=== PATIENT | female | born 1990 | race Hispanic/Latino ===

== ENCOUNTER 2019-05-22 18:31 | Emergency (ER) | payer MEDICAID ==
[2019-05-22 19:12] LABS: BASOPHILS % (AUTO) 0.8 % (0.0-5.0); EOSINOPHILS % (AUTO) 1.3 % (0.0-8.0); HEMATOCRIT 41.4 % (36-48); LYMPHOCYTES % (AUTO) 20.4 % (21.0-51.0); MEAN CORPUSCULAR HEMOGLOBIN 28.8 pg (27.0-33.0); MEAN CORPUSCULAR HGB CONC 33.7 g/dL (32.0-36.0); MEAN CORPUSCULAR VOLUME 85.5 fL (79-99); MONOCYTES % (AUTO) 4.7 % (3.0-13.0); NEUTROPHILS % (AUTO) 72.8 % (40.0-77.0); NUCLEATED RED BLOOD CELLS 0.1 % (0.0-0.19); PLATELET COUNT (AUTO) 282 K/uL (130-400); RED BLOOD CELL COUNT(AUTO) 4.84 MIL/uL (4.00-5.50); WHITE BLOOD COUNT (AUTO) 9.5 K/uL (4.8-10.8)
== END 2019-05-22 22:40 | disposition home or self-care (01) ==
LOC: EDH 18:31
DX: O20.0 Threatened abortion (principal); Z3A.01 Less than 8 weeks gestation of pregnancy
CPT/HCPCS: 36415; 76817; 76856; 84702; 85025; 86900; 86901

== ENCOUNTER 2020-01-04 07:30 | Observation (INO) | payer MEDICAID ==
[~2020-01-04] VITALS: Ht 162.6 cm; Wt 136.1 kg
[2020-01-04 08:10] VITALS: BP 128/77
[2020-01-05] MEDS ORDERED: FERS325 PO ×2 (17:26)
[2020-01-05] MEDS ORDERED: PREN1TAB29 PO ×2 (17:26)
== END 2020-01-04 09:00 | disposition home or self-care (01) ==
LOC: EDH 07:30 → LDH 07:31
PROVIDERS: ADMIT Obstetrics & Gynecology; ATTEND Obstetrics & Gynecology
DX: O62.9 Abnormality of forces of labor, unspecified (principal); O34.219 Maternal care for unspecified type scar from previous cesarean delivery; O48.0 Post-term pregnancy; Z3A.40 40 weeks gestation of pregnancy
CPT/HCPCS: 99284; G0378

== ENCOUNTER 2020-01-05 04:49 | Inpatient (IN) | payer MEDICAID ==
[~2020-01-05] VITALS: Ht 165.1 cm; Wt 137.0 kg
[2020-01-05] MEDS ORDERED: LACTATED RINGERS 1000ML 1,000 ML IV PRN (05:27)
[2020-01-05 05:44] LABS: HEMATOCRIT 41.1 % (36-48); MEAN CORPUSCULAR HEMOGLOBIN 28.8 pg (27.0-33.0); MEAN CORPUSCULAR HGB CONC 33.6 g/dL (32.0-36.0); MEAN CORPUSCULAR VOLUME 85.6 fL (79-99); RED BLOOD CELL COUNT(AUTO) 4.8 MIL/uL (4.00-5.50); RED CELL DISTRIBUTION WIDTH 14.2 % (11.0-15.5); WHITE BLOOD COUNT (AUTO) 10.7 K/uL (4.8-10.8)
[2020-01-05 05:47] LABS: APPEARANCE,URINE Clear (CLEAR); BILIRUBIN,URINE Negative (NEGATIVE); COLOR,URINE Yellow (YELLOW); GLUCOSE, URINE (UA) Negative (NEGATIVE); KETONES,URINE Negative (NEGATIVE); LEUKOCYTE ESTERASE ,URINE Trace (NEGATIVE); NITRATE,URINE Negative (NEGATIVE); OCCULT BLOOD,URINE Negative (NEGATIVE); PH,URINE 6.5 (5.0-8.0); PROTEIN,URINE Negative (NEGATIVE); UROBILINOGEN,URINE 0.2 mg/dL (0.2-1.0)
[2020-01-05 05:57] LABS: BACTERIA,URINE Rare /HPF (None Seen); MUCUS,URINE Rare LPF (None Seen); RBC,URINE 0-1 /HPF (0-1)
[2020-01-05] MEDS ORDERED: CALDOLOR 800MG+NS 250ML 250 ML IV PRN (06:15)
[2020-01-05] MEDS ORDERED: CEFAZOLIN SODIUM 1 GM VIAL IVP PRN (06:15)
[2020-01-05] MEDS ORDERED: LACTATED RINGERS 1000ML 1,000 ML IV SCH (06:15)
[2020-01-05] MEDS ORDERED: CEFAZOLIN SODIUM 1 GM VIAL ONE (06:22)
[2020-01-05] MEDS ORDERED: METOCLOPRAMIDE 10 MG/2 ML VIAL ONE (06:33)
[2020-01-05] MEDS ORDERED: CITRIC ACID/SODIUM CITRATE 30 ML UDCUP ONE (06:33)
[2020-01-05] MEDS ORDERED: DURAMORPH PF1 MG/ML 10ML AMP IV ONE (06:34)
[2020-01-05] MEDS ORDERED: FENTANYL CITRATE PF 50 MCG/1 ML 2ML VIAL ONE (06:35)
[2020-01-05] MEDS ORDERED: ONDANSETRON HCL 4 MG/2 ML VIAL ONE (07:15)
[2020-01-05] MEDS ORDERED: OXYTOCIN 10 UNIT/1ML 10ML VIAL ONE (07:15)
[2020-01-05] MEDS ORDERED: LANOLIN 30GM OINTMENT TP PRN (08:15)
[2020-01-05] MEDS ORDERED: MEASLES/MUMPS/RUBELLA VACCINE, LIVE 0.5 ML/VIAL SQ SCH (08:15)
[2020-01-05] MEDS ORDERED: MEPERIDINE-PF 75 MG/ML SYG IM PRN (08:15)
[2020-01-05] MEDS ORDERED: HYDROCODONE/ACETAMINOPHEN 5/325 MG TAB PO PRN (08:15)
[2020-01-05] MEDS ORDERED: BISACODYL 10 MG SUPP.RECT RC PRN (08:15)
[2020-01-05] MEDS ORDERED: OXYTOCIN-LR 20 UNITS/1000 ML 1,000 ML IV PRN (08:15)
[2020-01-05] MEDS ORDERED: PROMETHAZINE HCL 25 MG/ML 1ML AMPULE IM PRN (08:15)
[2020-01-05] MEDS ORDERED: SODIUM CHLORIDE 0.9% 10 ML VIAL IVP PRN (08:15)
[2020-01-05] MEDS ORDERED: DIPHENHYDRAMINE HCL 25 MG CAPSULE PO PRN (08:15)
[2020-01-05] MEDS ORDERED: ACETAMINOPHEN EXTRA STRENGTH 500 MG TABLET PO PRN (08:15)
[2020-01-05] MEDS ORDERED: DIPH,PERTUSS(ACELL),TET VAC/PF 0.5 ML VIAL IM SCH (08:15)
[2020-01-05 08:30] VITALS: BP 120/77
[2020-01-05 08:43] LABS: RAPID PLASMA REAGIN REACTIVE (NONREACTIVE)
[2020-01-05 08:50] LABS: RAPID PLASMA REAGIN TITER REACTIVE 1:4 (NONREACTIVE)
[2020-01-05] MEDS: LIDOCAINE 5% TOPICAL PATCH TP SCH (09:00)
[2020-01-05] MEDS: DOCUSATE SODIUM 100 MG CAP PO SCH ×2 (09:00→21:15)
[2020-01-05] MEDS ORDERED: DiphenhydrAMINE HCL 50 MG/ML VIAL IVP PRN (09:45)
[2020-01-05] MEDS ORDERED: ONDANSETRON HCL 4 MG/2 ML VIAL IVP PRN (09:45)
[2020-01-05] MEDS ORDERED: NALOXONE HCL 0.4 MG/1 ML ML IVP PRN (09:45)
[2020-01-05] MEDS ORDERED: LORATADINE 10 MG TABLET PO PRN (09:45)
[2020-01-05] MEDS ORDERED: EPHEDRINE SULFATE 50 MG/ML AMPULE IVP PRN (09:45)
[2020-01-05] MEDS: ACETAMINOPHEN-CODEINE 300/30MG TAB PO PRN (10:57)
[2020-01-05 11:24] VITALS: BP 115/53
[2020-01-05] MEDS: MEPERIDINE-PF 50 MG/ML SYG IM SCH (12:50)
[2020-01-05] MEDS: PROMETHAZINE HCL 25 MG/ML 1ML AMPULE IM SCH (12:50)
[2020-01-05] MEDS ORDERED: CALDOLOR 800MG+NS 250ML 250 ML IV SCH (16:15)
[2020-01-05 16:36] VITALS: BP 103/57
[2020-01-05] MEDS: CALDOLOR 800MG+NS 250ML 250 ML IV SCH (17:26)
[2020-01-05] MEDS ORDERED: PREN1TAB29 PO ×2 (17:26)
[2020-01-05] MEDS ORDERED: FERS325 PO ×2 (17:26)
[2020-01-05] MEDS: DEXTROSE 5 %-0.45 % NACL 1,000 ML IV PRN (18:12)
[2020-01-05 19:35] VITALS: BP 97/51
[2020-01-05] MEDS: SIMETHICONE 80 MG TAB.CHEW PO PRN (21:15)
[2020-01-05 23:40] VITALS: BP 104/55
[2020-01-06] MEDS: CALDOLOR 800MG+NS 250ML 250 ML IV SCH (02:02)
[2020-01-06] MEDS: DEXTROSE 5 %-0.45 % NACL 1,000 ML IV PRN (02:05)
[2020-01-06 04:32] VITALS: BP 95/63
--- NOTE | 2020-01-06 06:45 | NUR ---
Strickland; Strickland Catheter taken out patient tolerated well. Patient advice to call for help the first time she gets up, She verbalizes understanding.
[2020-01-06 06:48] LABS: HEMATOCRIT 33.1 % (36-48); MEAN CORPUSCULAR HEMOGLOBIN 28.8 pg (27.0-33.0); MEAN CORPUSCULAR HGB CONC 32.9 g/dL (32.0-36.0); MEAN CORPUSCULAR VOLUME 87.6 fL (79-99); RED BLOOD CELL COUNT(AUTO) 3.78 MIL/uL (4.00-5.50); RED CELL DISTRIBUTION WIDTH 14.6 % (11.0-15.5); WHITE BLOOD COUNT (AUTO) 8.5 K/uL (4.8-10.8)
[2020-01-06 07:34] VITALS: BP 101/68
--- NOTE | 2020-01-06 08:00 | NUR ---
PATIENT ASSISTED UP TO CHAIR AND TOLERATED ACTIVITY WELL. ENCOURAGED PATIENT TO ALLOW PAIN MEDICATION TO WORK AND THEN START WALKING IN ROOM. OFFERED PATIENT WARM PRUNE JUICE AND PATIENT INDICATED NOT WANTING PRUNE JUICE. PLAN OF CARE EXPLAINED TO PATIENT. INCISIONAL DRESSING REMOVED AND INCISION LEFT OPEN TO AIR. ABD PAD APPLIED TO SITE. INCISION WITH DERMABOND HAD SLIGHT SEROUS SANGUINEOUS DRAINAGE AND BINDER WAS APPLIED OVER ABD PAD FOR SUPPORT.
[2020-01-06] MEDS: DOCUSATE SODIUM 100 MG CAP PO SCH ×2 (09:21→21:54)
[2020-01-06] MEDS: SIMETHICONE 80 MG TAB.CHEW PO PRN ×3 (09:21→21:54)
[2020-01-06] MEDS: IBUPROFEN 800 MG TAB PO PRN ×4 (09:22→23:49)
[2020-01-06] MEDS: LIDOCAINE 5% TOPICAL PATCH TP SCH (09:22)
[2020-01-06 11:13] VITALS: BP 105/63
[2020-01-06] MEDS: PROMETHAZINE HCL 25 MG/ML 1ML AMPULE IM SCH (12:15)
[2020-01-06] MEDS: MEPERIDINE-PF 50 MG/ML SYG IM SCH (12:15)
[2020-01-06 16:00] VITALS: BP 110/65
--- NOTE | 2020-01-06 16:00 | NUR ---
PATIENT RESTING IN BED AND ENCOURAGED TO WALK IN HALLWAY. INDICATED WALKING TO BATHROOM. PIV REMOVED AND IV SITE WNL. PATIENT UP AND VOIDED 500CC IS PRUDENCIO COLOR AND PATIENT INFORMED SINCE NO LONGER ON IV FLUIDS, SHE WILL NEED TO DRINK MORE FLUIDS.
--- NOTE | 2020-01-06 16:30 | NUR ---
PATIENT STATES NOT PASSING GAS ONLY BURPING AND WAS OFFER DULCOLAX SUPPOSITORY AND PATIENT REFUSED. OFFERED WARM PRUNE JUICE AND AGAIN REFUSED. ENCOURAGED PATIENT TO WALK.
--- NOTE | 2020-01-06 17:30 | NUR ---
DINNER WAS BROUGHT IN AND PATIENT CAME OUT OF BATHROOM AND INDICATED BEING ABLE TO PASS GAS BUT NO BM. ENCOURAGED PATIENT NOT TO GO BACK TO BED AND INSTEAD SIT UP IN CHAIR AND ENJOY HER DINNER.
[2020-01-06 20:30] VITALS: BP 112/57
[2020-01-06 23:45] VITALS: BP 128/70
[2020-01-07] MEDS: ACETAMINOPHEN-CODEINE 300/30MG TAB PO PRN (00:08)
[2020-01-07 04:03] VITALS: BP 131/77
[2020-01-07] MEDS: IBUPROFEN 800 MG TAB PO PRN ×2 (05:47→12:30)
[2020-01-07 07:36] VITALS: BP 122/66
[2020-01-07] MEDS: DOCUSATE SODIUM 100 MG CAP PO SCH (08:39)
[2020-01-07] MEDS: LIDOCAINE 5% TOPICAL PATCH TP SCH (08:39)
[2020-01-07] MEDS: SIMETHICONE 80 MG TAB.CHEW PO PRN ×2 (08:39→12:27)
[2020-01-07 11:38] VITALS: BP 121/75
--- NOTE | 2020-01-07 16:00 | NUR ---
DISCHARGE PT LEFT UNIT VIA WHEELCHAIR, ACCOMPANIED BY MOTHER. DENIED PAIN AND HAD NO COMPLAINTS. TRANSPORTED BY PERSONAL VEHICLE.
[2020-01-08 10:10] LABS: HEPATITIS Bs ANTIGEN SCREEN P Negative (Negative)
== END 2020-01-07 16:00 | disposition home or self-care (01) | DRG 539 ==
LOC: EDH 04:49 → LDH 04:50 → OBSVTOIN 04:50 → WSH 11:16
PROVIDERS: ADMIT Obstetrics & Gynecology; ATTEND Obstetrics & Gynecology
PROC: 0UB70ZZ Excision of Bilateral Fallopian Tubes, Open Approach (ICD-10-PCS; 2020-01-05)
PROC: 3E0234Z Introduction of Serum, Toxoid and Vaccine into Muscle, Percutaneous Approach (ICD-10-PCS; 2020-01-05)
PROC: 3E0134Z Introduction of Serum, Toxoid and Vaccine into Subcutaneous Tissue, Percutaneous Approach (ICD-10-PCS; 2020-01-05)
PROC: 10D00Z0 Extraction of Products of Conception, High, Open Approach (ICD-10-PCS; principal; 2020-01-05 06:49)
DX: O34.219 Maternal care for unspecified type scar from previous cesarean delivery (principal); E66.01 Morbid (severe) obesity due to excess calories; O99.214 Obesity complicating childbirth; O98.119 Syphilis complicating pregnancy, unspecified trimester; Z30.2 Encounter for sterilization; Z3A.38 38 weeks gestation of pregnancy; Z37.0 Single live birth; Z23 Encounter for immunization
CPT/HCPCS: 36415; 59510; 81001; 85027; 86592; 86780; 86850; 86900; 86901; 87340; A4344; G0378; J0690; J1741; J2175; J2274; J2405; J2550; J2590; J2765; J3010

== ENCOUNTER → 2022-05-10 | Outpatient (CLI) | payer MEDICAID ==
[~2022-05-10] MED LIST: FERS325 PO; PREN1TAB29 PO
[2022-05-10 09:45] LABS: INR 0.94 (0.85-1.15); PROTHROMBIN TIME 10.3 SEC (9.6-11.6)
[2022-05-10 09:46] LABS: PARTIAL THROMBOPLASTIN TIME 31.5 SEC (26.3-35.5)
== END | disposition home or self-care (01) ==
LOC: RAH 08:37
PROVIDERS: ATTEND Student in an Organized Health Care Education/Training Program
DX: D48.62 Neoplasm of uncertain behavior of left breast (principal)
CPT/HCPCS: 36415; 76641; 85610; 85730

== ENCOUNTER 2022-08-15 13:33 | Emergency (ER) | payer MEDICAID ==
[~2022-08-15] VITALS: Ht 165.1 cm; Wt 127.0 kg
[2022-08-15 13:39] VITALS: BP 155/92
== END 2022-08-15 18:22 | disposition home or self-care (01) ==
LOC: EDH 13:33
DX: J03.90 Acute tonsillitis, unspecified (principal); Z20.822 Contact with and (suspected) exposure to COVID-19
CPT/HCPCS: 99283; 87635; 87880; 87804 ×2; 86738; 36415; C9803

== ENCOUNTER → 2022-11-17 | Outpatient (CLI) | payer MEDICAID | END | disposition home or self-care (01) | LOC: RAH 10:59 | PROVIDERS: ATTEND Student in an Organized Health Care Education/Training Program | DX: D48.62 Neoplasm of uncertain behavior of left breast (principal) ==

== ENCOUNTER 2023-02-05 08:55 | Emergency (ER) | payer MEDICAID ==
[~2023-02-05] VITALS: Ht 162.6 cm; Wt 124.3 kg
[2023-02-05 09:33] LABS: BASOPHILS % (AUTO) 0.4 % (0.0-5.0); EOSINOPHILS % (AUTO) 0.4 % (0.0-8.0); HEMATOCRIT 37.8 % (36-48); LYMPHOCYTES % (AUTO) 22.7 % (21.0-51.0); MEAN CORPUSCULAR HEMOGLOBIN 28.5 pg (27.0-33.0); MEAN CORPUSCULAR HGB CONC 32.5 g/dL (32.0-36.0); MEAN CORPUSCULAR VOLUME 87.7 fL (79-99); MONOCYTES % (AUTO) 4.4 % (3.0-13.0); NEUTROPHILS % (AUTO) 71.7 % (40.0-77.0); PLATELET COUNT (AUTO) 320 K/uL (130-400); RED BLOOD CELL COUNT(AUTO) 4.31 MIL/uL (4.00-5.50); RED CELL DISTRIBUTION WIDTH 13.2 % (11.0-15.5); WHITE BLOOD COUNT (AUTO) 9.8 K/uL (4.8-10.8)
[2023-02-05 09:44] LABS: CREATININE 0.6 mg/dL (0.5-1.5); POTASSIUM 3.9 mmol/L (3.5-5.1)
[2023-02-05 09:49] LABS: ALBUMIN 3.6 g/dL (3.5-5.0); TOTAL PROTEIN, SERUM 7.1 g/dL (6.0-8.3)
[2023-02-05 09:58] LABS: APPEARANCE,URINE CLEAR (CLEAR); BILIRUBIN,URINE NEGATIVE (NEGATIVE); COLOR,URINE YELLOW (YELLOW); GLUCOSE, URINE (UA) NEGATIVE (NEGATIVE); KETONES,URINE NEGATIVE (NEGATIVE); LEUKOCYTE ESTERASE ,URINE NEGATIVE Leu/uL (NEGATIVE); NITRATE,URINE NEGATIVE (NEGATIVE); OCCULT BLOOD,URINE NEGATIVE (NEGATIVE); PROTEIN,URINE 20 mg/dL (NEGATIVE); UROBILINOGEN,URINE 0.2 mg/dL (0.2-1.0)
[2023-02-05 10:19] LABS: HCG,QUALITATIVE URINE NEGATIVE (NEGATIVE)
[2023-02-05 11:09] LABS: MUCUS,URINE MANY LPF (None Seen); SQUAMOUS EPITHELIAL CELL,UR MOD /HPF (0-2)
[2023-02-05 12:31] VITALS: BP 124/73
== END 2023-02-05 12:48 | disposition home or self-care (01) ==
LOC: EDH 08:55
DX: R07.89 Other chest pain (principal); I10 Essential (primary) hypertension
CPT/HCPCS: 36415; 71045; 80053; 81001; 81025; 84484; 85025; 93005

== ENCOUNTER → 2023-05-02 | Outpatient (CLI) | payer MEDICAID | END | disposition home or self-care (01) | LOC: SHCH 07:46 | PROVIDERS: ATTEND Internal Medicine Cardiovascular Disease | DX: I10 Essential (primary) hypertension (principal); R00.2 Palpitations | CPT/HCPCS: 93306 ==

== ENCOUNTER → 2023-06-02 | Outpatient (CLI) | payer MEDICAID | END | disposition home or self-care (01) | LOC: RAH 09:06 | PROVIDERS: ATTEND Student in an Organized Health Care Education/Training Program | DX: R92.323 Mammographic fibroglandular density, bilateral breasts (principal); R92.2 Inconclusive mammogram | CPT/HCPCS: 76641 ==

== ENCOUNTER → 2024-02-20 | Outpatient (CLI) | payer BC ==
[~2024-02-20] MED LIST changes: +IOHEXOL-350 75 ML VIAL IV ONE
== END | disposition home or self-care (01) ==
LOC: RAH 11:18
PROVIDERS: ATTEND Nurse Practitioner Family
DX: R16.0 Hepatomegaly, not elsewhere classified (principal); R10.9 Unspecified abdominal pain; M47.815 Spondylosis without myelopathy or radiculopathy, thoracolumbar region
CPT/HCPCS: 74170; Q9967

== ENCOUNTER 2025-02-11 12:12 | Emergency (ER) | payer BC ==
[~2025-02-11] VITALS: Ht 165.1 cm; Wt 127.0 kg
[~2025-02-11 12:12] MED LIST changes: -IOHEXOL-350 75 ML VIAL IV ONE
[2025-02-11 13:26] LABS: IMMATURE GRANULOCYTE ABSOLUTE 0.02 K/uL (0-1); NUCLEATED RED BLOOD CELLS 0.0 % (0.0-0.19); PLATELET COUNT (AUTO) 317 K/uL (130-400); RED BLOOD CELL COUNT(AUTO) 4.60 MIL/uL (4.00-5.50); RED CELL DISTRIBUTION WIDTH 13.0 % (11.0-15.5); WHITE BLOOD COUNT (AUTO) 9.0 K/uL (4.8-10.8)
[2025-02-11 13:54] LABS: CREATININE 0.4 mg/dL (0.5-1.0); GLOMERULAR FILTR. RATE CALC 135.0 mL/min (>90); GLUCOSE,RANDOM 87.0 mg/dL (70-105); SODIUM SERUM 140.0 mmol/L (136-145); UREA NITROGEN, BLOOD 13.0 mg/dL (7-18)
--- NOTE | 2025-02-11 15:54 | ERN ---
ED Note History of Present Illness Stated Complaint: ABNORMAL BLEEDING & DIZINESS Chief Complaint: Vaginal Problems/Bleeding Time Seen by MD: 12:26 Time Seen by Midlevel: 12:30 Dictation: 34-year-old female states she was sent here by her OBGYN to have blood drawn and get an ultrasound for abnormal uterine bleeding. Patient states he has been on her period for three weeks and now feels dizziness. States her only other medical history is hypertension which he took losartan four. Allergies: Coded Allergies: No Known Drug Allergies (Unverified Allergy, Unknown, 01/04/20) Home Meds Reported Medications Ferrous Sulfate (Ferrous Sulfate) 325 Mg Ectab, 325 MG PO HS, TAB.EC 01/05/20 Vit Comb.10/Iron/FA (Vitafol-Ob Caplet) 1 Each Tablet, 1 EACH PO HS, TAB 01/05/20 Past Medical History Past Medical History: Hypertension Surgical History: Tonsillectomy, BTL, Review of System Dictation Constitutional: Negative for fever,chills, and weight loss Eyes: Negative for injury, pain,redness, and discharge ENT: Negative for injury,pain or swelling Cardiovascular: Negative for chest pain, palpitations, and edema Respiratory: Negative for shortness of breath, cough, and wheezing, Abdomen/GI: Negative for abdominal pain, nausea, vomiting, diarrhea, and constipation Back: Negative for injury and pain : Vaginal bleeding MS/Extremity: Negative for injury and deformity Skin: Negative for rash, and discoloration Neuro: Negative for headache, weakness, numbness, tingling, and seizure Psych: Negative for suicide ideation, homicidal ideation, and hallucinations Review of Systems: was completed Initial Vital Sign VS Vital Signs Date Time Temp Pulse Resp B/P (MAP) Pulse Ox O2 Delivery O2 Flow Rate FiO2 02/11/25 12:54 98.4 70 16 160/85 98 Room Air* 0 21 Physical Exam Dictation General: awake, alert, NAD Head/Face: Normocephalic, atraumatic Eyes: PERRL, EOMI, vision at baseline ENT: oral cavity clear, TMs clear, no signs of infection Neck: Trachea midline, supple, no nuchal rigidity Cardiovascular: RRR, normal S1/S2, No MRGs, no JVD Respiratory: CTAB, no respiratory distress, No rales or wheezes Abdomen: Soft, non-tender, non-distended, normal bowel sounds, no guarding or rebound. Skin: Warm, dry, normal turgor, no rash MS/Extremity: Pulses equal, no cyanosis, neurovascular intact, FROM Neuro: COAx4, GCS 15, strength 5/5, CN 2-12 intact, normal cerebellar exam, normal gait, Psych: Normal behavior, mood, and affect normal Results (Laboratory/Radiology) Laboratory/Radiology Laboratory Tests Test 02/11/25 13:18 White Blood Count 9.0 K/uL (4.8-10.8) Red Blood Count 4.60 MIL/uL (4.00-5.50) Hemoglobin 13.4 g/dL (12.0-16.0) Hematocrit 40.8 % (36-48) Mean Corpuscular Volume 88.7 fL (79-99) Mean Corpuscular Hemoglobin 29.1 pg (27.0-33.0) Mean Corpuscular Hemoglobin Concent 32.8 g/dL (32.0-36.0) Red Cell Distribution Width 13.0 % (11.0-15.5) Platelet Count 317 K/uL (130-400) Mean Platelet Volume 10.2 fL (7.5-10.5) Immature Granulocyte % (Auto) 0.2 % (0-1) Neutrophils (%) (Auto) 69.0 % (40.0-77.0) Lymphocytes (%) (Auto) 24.4 % (21.0-51.0) Monocytes (%) (Auto) 5.0 % (3.0-13.0) Eosinophils (%) (Auto) 1.0 % (0.0-8.0) Basophils (%) (Auto) 0.4 % (0.0-5.0) Neutrophils # (Auto) 6.2 K/uL (1.8-7.7) Lymphocytes # (Auto) 2.2 K/uL (1.0-4.8) Monocytes # (Auto) 0.5 K/uL (0.1-1.0) Eosinophils # (Auto) 0.09 K/uL (0.00-0.70) Basophils # (Auto) 0.04 K/uL (0.00-0.20) Absolute Immature Granulocyte (auto 0.02 K/uL (0-1) Nucleated Red Blood Cells 0.0 % (0.0-0.19) Sodium Level 140 mmol/L (136-145) Potassium Level 4.0 mmol/L (3.5-5.1) Chloride Level 104 mmol/L (101-111) Carbon Dioxide Level 31 mmol/L (21-32) Blood Urea Nitrogen 13 mg/dL (7-18) Creatinine 0.4 mg/dL (0.5-1.0) L Glomerular Filtration Rate Calc 135 mL/min (>90) Random Glucose 87 mg/dL (70-105) Total Calcium 8.8 mg/dL (8.5-10.1) Thyroid Stimulating Hormone (TSH) 2.68 uIU/mL (0.36-3.74) Free Thyroxine (T4) Direct 0.93 ng/dL (0.76-1.46) Human Chorionic Gonadotropin, Quant 0 mIU/mL (0-5) Labs Reviewed?: Yes ED Course ED Course Orders Procedure Category Date Status Time Cbc With Differential LAB 02/11/25 Complete 12:39 Basic Metabolic Panel LAB 02/11/25 Complete 12:39 Thyroid Stimulating LAB 02/11/25 Complete Hormone 12:39 Hcg,Quantitative LAB 02/11/25 Complete 12:51 T4 Free LAB 02/11/25 Complete 12:51 Us Transvaginal Non-Ob US 02/11/25 Taken 13:59 Urinalysis Profile LAB 02/11/25 Logged 15:35 Vital Signs Date Time Temp Pulse Resp B/P (MAP) Pulse Ox O2 Delivery O2 Flow Rate FiO2 02/11/25 14:56 97.5 67 16 141/85 100 Room Air* 0 21 02/11/25 12:54 98.4 70 16 160/85 98 Room Air 0 02/11/25 12:54 98.4 70 16 160/85 98 Room Air* 0 21 Medical Decision Making MDM MDM: 34-year-old female states she was sent here by her OBGYN to have blood drawn and get an ultrasound for abnormal uterine bleeding. Patient states he has been on her period for three weeks and now feels dizziness. States her only other medical history is hypertension which he took losartan four.CBC shows no l eukocytosis, no anemia, no thrombocytopenia. Chemistries unremarkable. TSH free T4 are within normal range. Patient isn't . Ultrasound shows flow to bilateral ovaries. There is a cyst on the right ovary measuring 3.1 x 2.4 x 2.8 cm. Discussed findings with the patient. Educated patient that she needs to follow up with her OBGYN. Patient states they put her today Jose. Educated to start taking the medication as soon as possible and to follow up with her OBGYN. Patient verbalized understanding, answered all questions. Differential diagnosis: Anemia, abnormal uterine bleeding, , ruptured cyst Rationale: Tests considered and ordered secondary to shared decision making include: Previous outside records reviewed: Old ER visits. Risk of complication and/or morbidity or mortality of patient management: None Medications-Per medication reconciliation Need for hospitalization: Patient does not meet criteria for hospitalization. Need for emergency major/minor surgery: No There are no social concerns with this patient. Prescription drug management Prescriptions will include symptomatic care Patient's prior external medical records from other ER visits were reviewed by me as indicated. Prior testing and results from previous visits were reviewed. Prior tests were taken into account with medical decision making and resource utilization, independent historian/historians were used to obtain complete medical history. I independently interpreted the test that were performed, results were reviewed by me and considered findings on radiology if ordered. Medical management and examination interpretation discussions were had by me with other qualified healthcare professionals as indicated for the patient's care. DX & DISP Disposition: Discharge Departure Impression: Primary Impression: Abnormal uterine bleeding Condition: Stable Additional Instructions: Follow up with the OBGYN. Start taking the medication that she prescribed. Return to the hospital as needed. Referrals: CAITY ADAMSON (PCP) Time of Disposition: 15:54 I have reviewed the case, and I agree with, Diagnosis and Plan SAVI HAMPTON NP Feb 11, 2025 15:54
[2025-02-11 16:05] VITALS: BP 155/99; PULSE 68; RESP 20; TEMP 97.6; O2SAT 100
[2025-02-11 16:06] LABS: APPEARANCE,URINE CLEAR (CLEAR); GLUCOSE, URINE (UA) NEGATIVE (NEGATIVE); LEUKOCYTE ESTERASE ,URINE NEGATIVE Leu/uL (NEGATIVE); NITRATE,URINE NEGATIVE (NEGATIVE); OCCULT BLOOD,URINE NEGATIVE (NEGATIVE)
[2025-02-11 16:07] LABS: ADD UA MICROSCOPIC YES; SQUAMOUS EPITHELIAL CELL,UR RARE /HPF (0-2)
--- NOTE | 2025-02-11 16:31 | HMCIMG ---
EXAM: US Pelvis, Complete. CLINICAL HISTORY: aub TECHNIQUE: Transabdominal pelvic ultrasound (complete) with image documentation. COMPARISON: None provided. FINDINGS: The uterus is anteverted, and measures 10.1 x 5.3 x 5.9 cm in the craniocaudal, AP, and transverse dimensions respectively. The endometrial stripe is normal thickness, measuring up to 1.1 cm. The cervix is closed and normal in length. The right ovary measures 2.2 x 1.6 x 2.3 cm, and contains a 3.1 x 2.4 x 2.8 cm cyst. The left ovary measures 2.9 x 1.9 x 2.8 cm, and contains a 1.5 x 1.4 x 1.5 cm cyst. Ovarian blood flow is documented bilaterally. There is no free fluid within the cul-de-sac. IMPRESSION: 1. No acute pelvic findings. 2. Bilateral ovarian cysts, largest on right measuring 3.1 x 2.4 x 2.8 cm. /[place]
== END 2025-02-11 16:00 | disposition home or self-care (01) ==
LOC: EDH 12:12
DX: N93.9 Abnormal uterine and vaginal bleeding, unspecified (principal); I10 Essential (primary) hypertension; R10.2 Pelvic and perineal pain; Z90.89 Acquired absence of other organs; Z98.51 Tubal ligation status
CPT/HCPCS: 36415; 76830; 80048; 81001; 84439; 84443; 84702; 85025; 99284